=== PATIENT | female | born 1930 | race Caucasian/White ===

== ENCOUNTER 2021-09-07 14:11 | Emergency (ER) | payer MEDICARE, OTHER ==
[2021-09-07] MEDS ORDERED: Sodium Chloride 0.9% 10 ML Syringe FLUSH PRN (14:40)
[2021-09-07 15:40] LABS: CHLORIDE,CL 103 mmol/L (98-107); SODIUM,NA 142 mmol/L (136-145)
[2021-09-07 15:41] LABS: ANION GAP 7.7 meq/L (7-15)
[2021-09-07] MEDS ORDERED: Lactated Ringers 1,000 ML IV SCH (16:00)
[2021-09-07] MEDS ORDERED: Morphine 2 MG/ML SYRINGE IVPUSH ONE (16:28)
[2021-09-07 19:11] VITALS: BP 143/92; PULSE 82
== END 2021-09-07 18:47 ==
LOC: LL.ED 14:11
DX: S06.2X9A Diffuse traumatic brain injury with loss of consciousness of unspecified duration, initial encounter (principal); E78.00 Pure hypercholesterolemia, unspecified; I10 Essential (primary) hypertension; I25.2 Old myocardial infarction; Z95.5 Presence of coronary angioplasty implant and graft; Z88.8 Allergy status to other drugs, medicaments and biological substances; Z79.899 Other long term (current) drug therapy; W01.0XXA Fall on same level from slipping, tripping and stumbling without subsequent striking against object, initial encounter
CPT/HCPCS: 36415; 70450; 80053; 83735; 85025; 96374; 99284-25; 99285; J2270; J7120